=== PATIENT | female | born 1995 | race Caucasian/White ===

== ENCOUNTER 2018-03-15 05:48 | Inpatient (IN) ==
[2018-03-15] MEDS ORDERED: Citric Acid/Sodium Citrate Liq 30 ML UDC PO SCH (06:15)
[2018-03-15 06:34] LABS: Baso # (Auto) 0.1 th/mm3 (0.0-0.2); Baso % (Auto) 0.5 % (0.0-2.0); Eos # (Auto) 0.1 th/mm3 (0.0-0.4); Hematocrit 36.3 % (35.0-46.0); Hemoglobin 11.8 gm/dL (11.6-15.3); Lymph # (Auto) 2.5 th/mm3 (1.0-4.8); Lymph % (Auto) 21.7 % (9.0-44.0); Mean Corpuscular HGB Conc 32.4 % (32.0-36.0); Mean Corpuscular Hemoglobin 26.6 pg (27.0-34.0); Mean Corpuscular Volume 82.2 fL (80.0-100.0); Mean Platelet Volume 10.3 fL (7.0-11.0); Mono # (Auto) 0.7 th/mm3 (0.0-0.9); Mono % (Auto) 6.3 % (0.0-8.0); Neut # (Auto) 8.3 th/mm3 (1.8-7.7); Neut % (Auto) 70.5 % (16.0-70.0); Platelet Count 192 th/mm3 (150-450); Red Blood Count 4.42 mil/mm3 (4.00-5.30); White Blood Count 11.7 th/mm3 (4.0-11.0)
[2018-03-15] MEDS ORDERED: Morphine Sulfate PF Inj 5 MG/10 ML Ampul ONE (06:50)
--- NOTE | 2018-03-15 07:24 | P.HPOB ---
History of Present Illness Service: obstetrics Primary Care Physician: UNKNOWN Chief Complaint: for elective repeat CS History of Present Illness: 23 yo WF who is 39 weeks and with previous section. She desires CS and signed consents Weeks Gestation:: 39 Para: 1 : 2 - Inpatient Certification I certify that the inpatient services were ordered in accordance with Medicare regulations governing the order. This includes certification that hospital inpatient services are reasonable and necessary and in the case of services not specified as inpatient-only under 42 CFR 419.22(n), that they are appropriately provided as inpatient services in accordance to with the 2-midnight benchmark under 43 CFR 412.3(e) Estimated Total Length of Stay (Days): 2 Plans for Post Hospital Care: Home Review of Systems negative except All other systems reviewed negative except as stated in HPI PMFSH - History History Provided By: Patient - Medical / Surgical Hx Neg / Unobtainable Medical Problems Denied: Yes - Medical History Medical History: Medical History (Last Reviewed 03/15/18 @ 07:21 by Vlad Feliciano MD) delivery delivered - Tobacco History Second Hand Smoke Exposure: No Tobacco Use In Past 30 Days: No Smoking Status: Never smoker - Alcohol History How Often Do You Have a Drink Containing Alcohol: Never - Substance Use History Substance History: No History of Abuse - Immunization History Hx Influenza Vaccine This Season: No Medications and Allergies Active Medications: Active Medications Citric Acid/Sodium Citrate (Sodium Citrate/Citric Acid Liq) 30 ml PO HOROLOGIST [facility] Stop: 03/19/18 06:14 Cefazolin Sodium 1,000 mg/ (Sodium Chloride) 100 mls @ 100 mls/hr IV.SIG HOROLOGIST [facility] Stop: 03/19/18 06:59 Lactated Ringer's (Lr 1000 Ml Inj) 1,000 mls @ 150 mls/hr IV.CONT .Q6H40M [facility] Allergies Allergy/AdvReac Type Severity Reaction Status Date / Time No Known Allergies Allergy none Uncoded 03/15/18 06:06 Home Medications Medication Instructions Recorded Confirmed Type prenat.vits,luis daniel,[id number] 1 tab PO DAILY 03/15/18 03/15/18 History [ Vitamin] Exam Vital signs: Vital Signs 03/15/18 06:15 03/15/18 06:36 Temperature 98.2 F Pulse Rate 84 80 Respiratory Rate 18 18 Blood Pressure 126/91 H 132/87 Intake & Output 03/14/18 03/15/18 03/15/18 18:59 06:59 18:59 Weight 68.039 kg Other: Weight On Admission 68.039 kg - Constitutional no acute distress - Routine HEENT Exam Head: Present: normocephalic - Routine Neck Exam Present: supple - Routine Respiratory Exam Present: CTA bilaterally - Routine Cardiovascular Exam Present: RRR - Routine Abdominal Exam Present: soft, normoactive bowel sounds - Routine Extremities Exam Present: full ROM - Routine Skin Exam Present: intact - Routine Neurological Exam Present: alert, oriented X3 (cervix closed) Results - Labs CBC & Chem 7: 03/15/18 06:20 Labs: Laboratory Results - last 24 hr 03/15/18 03/15/18 06:20 06:20 WBC 11.7 H RBC 4.42 Hgb 11.8 Hct 36.3 MCV 82.2 MCH 26.6 L MCHC 32.4 RDW 15.0 Plt Count 192 MPV 10.3 Neut % (Auto) 70.5 H Lymph % (Auto) 21.7 [place] % (Auto) 6.3 Eos % (Auto) 1.0 Baso % (Auto) 0.5 Neut # (Auto) 8.3 H Lymph # (Auto) 2.5 [place] # (Auto) 0.7 Eos # (Auto) 0.1 Baso # (Auto) 0.1 WBC Differential . Differential Comment Auto diff final Blood Type O Positive Blood Type Recheck Not needed Antibody Screen Negative Caprini VTE Risk Assessment Caprini VTE Risk Assessment: No/Low Risk (score <= 1) Caprini Risk Assessment Model: Point Value = 1 Point Value = 2 Point Value = 3 Point Value = 5 Age 41-60 Minor surgery BMI > 25 kg/m2 Swollen legs Varicose veins or History of unexplained or recurrent spontaneous Oral contraceptives or hormone replacement Sepsis (< 1 month) Serious lung disease, including pneumonia (< 1 month) Abnormal pulmonary function Acute myocardial infarction Congestive heart failure (< 1 month) History of inflammatory bowel disease Medical patient at bed rest Age 61-74 Arthroscopic surgery Major open surgery (> 45 min) Laparoscopic surgery (> 45 min) Malignancy Confined to bed (> 72 hours) Immobilizing plaster cast Central venous access Age >= 75 History of VTE Family history of VTE Factor V Leiden Prothrombin [id number] Lupus anticoagulant Anticardiolipin antibodies Elevated serum homocysteine Heparin-induced thrombocytopenia Other congenital or acquired thrombophilia Stroke (< 1 month) Elective arthroplasty Hip, pelvis, or leg fracture Acute spinal cord injury (< 1 month) Prophylaxis Regimen: Total Risk Factor Score Risk Level Prophylaxis Regimen 0-1 Low Early ambulation 2 Moderate Order ONE of the following: *Sequential Compression Device (SCD) *Heparin 5000 units SQ BID 3-4 Higher Order ONE of the following medications: *Heparin 5000 units SQ TID *Enoxaparin/Lovenox 40 mg SQ daily (WT < 150 kg, CrCl > 30 mL/min) *Enoxaparin/Lovenox 30 mg SQ daily (WT < 150 kg, CrCl > 10-29 mL/min) *Enoxaparin/Lovenox 30 mg SQ BID (WT < 150 kg, CrCl > 30 mL/min) AND/OR *Sequential Compression Device (SCD) 5 or more Highest Order ONE of the following medications: *Heparin 5000 units SQ TID (Preferred with Epidurals) *Enoxaparin/Lovenox 40 mg SQ daily (WT < 150 kg, CrCl > 30 mL/min) *Enoxaparin/Lovenox 30 mg SQ daily (WT < 150 kg, CrCl > 10-29 mL/min) *Enoxaparin/Lovenox 30 mg SQ BID (WT < 150 kg, CrCl > 30 mL/min) AND *Sequential Compression Device (SCD) Assessment and Plan - Diagnosis (1) 39 weeks gestation of Code(s): Z3A.39 - 39 weeks gestation of Status: Acute (2) delivery delivered Code(s): O82 - Encounter for delivery without indication Status: Acute - Plan elective CS repeat
[2018-03-15 07:57] LABS: Amphetamine Screen,Urine Neg (Neg); Barbiturate Screen,Urine Neg (Neg); Cannabinoid Screen,Urine Neg (Neg); Cocaine Screen,Urine Neg (Neg)
[2018-03-15 07:58] LABS: Bacteria,Urine Occasional /hpf; Bilirubin,Urine Negative (Negative); Clarity,Urine Hazy (Clear); Color,Urine Yellow (Yellw/Straw); Glucose,Urine (UA) Negative (Negative); Leukocyte Esterase,Urine Large (Negative); Mucus,Urine Few /lpf (Occasional); Nitrite,Urine Negative (Negative); Opiate Screen,Urine Neg (Neg); Squamous Epithelial Cell,Urine 15 /hpf (0-5)
[2018-03-15] MEDS ORDERED: Oxytocin 30 Units/500ml Premix 30 UNITS/500 ML BAG IV.SIG ONE ×2 (08:15→19:04)
--- NOTE | 2018-03-15 08:19 | P.OBDELI ---
Procedure Note - Pre Op Diagnosis (1) 39 weeks gestation of (2) delivery delivered - Post Op Diagnosis (1) 39 weeks gestation of (2) delivery delivered Performed by: Vlad Feliciano MD Procedure: Repeat Low Transverse Section Indication for Delivery: Desired elective repeat Informed Consent Obtained: For anesthesia, For procedure Confirmed Correct: Patient, Procedure, Site, Time-out taken Anesthesia: Spinal Medication Prior to Procedure: As documented in eMAR Monitoring During Procedure: Blood pressure monitoring, night monitor Urinary Catheter: Inserted using sterile technique Sterile Preparation: Duraprep Position: Supine with wedge to left side - Operative Features Skin Incision: Pfannenstiel Uterine Incision: Low transverse w/knife / blunt ext Membranes Ruptured: Artificially Presentation: Occiput anterior Status of Infant: Viable Placenta Delivered: Intact Medications: Antibiotics Procedure Tolerated: Well Maternal Condition: Stable Baby Condition: Stable - : Female, Single
[2018-03-15] MEDS ORDERED: Oxytocin 30 Units/500ml Premix 30 UNITS/500 ML BAG ONE (08:59)
--- NOTE | 2018-03-15 09:09 | MP ---
cc: Vlad Feliciano MD DATE OF OPERATION: 03/15/2018 PREOPERATIVE DIAGNOSIS: Desires elective repeat section at 39 weeks. POSTOPERATIVE DIAGNOSIS: Desires elective repeat section at 39 weeks. PROCEDURE PERFORMED: Repeat low transverse section. SURGEON: Vlad Feliciano MD ESTIMATED BLOOD LOSS: 300 mL ANESTHESIA: Spinal, Bryanna [place] COMPLICATIONS: None. FINDINGS: Live female infant. PROCEDURE IN DETAIL: After informed consent, the patient was taken to the operating room where she was placed under spinal anesthesia, placed in supine position with left lateral tilt. Perineum and vagina were prepped and draped in normal sterile fashion. After adequate anesthesia was assured, timeout was taken. Antibiotics was initiated. A Pfannenstiel skin incision was carried sharply through the skin to the fascia. The fascia was nicked in the midline. The incision was extended laterally using Al scissors. Rectus muscle was dissected off fascia wit sharp dissection secondary to scar tissue. Rectus muscle in the midline. The incision had to be extended upward and downward when the peritoneum was entered, secondary to scar tissue. Once we placed a bladder blade in the abdomen, a bladder flap was created by dissecting the bladder off the lower uterine segment and the low transverse uterine incision was then made, carried sharply to the uterine cavity. Clear fluid was noted. The incision was extended laterally using blunt traction. A hand was placed into the uterus. The infant's head was guided through the incision. Using fundal pressure, the infant's head readily delivered, nose and mouth suctioned well. Cord was clamped and cut and the handed to Pediatrics in attendance. Cord blood was collected. Placenta was delivered manually. The uterus exteriorized, wiped free from all remaining products of conception. Uterine incision was then closed with a running lock stitch of chromic suture. Good hemostasis was achieved. Uterus was placed back into the abdomen and noted to be hemostatic. The peritoneum was closed with chromic suture. The fascia was then closed with Vicryl suture. The skin was closed with subcuticular stitch. Each layer was noted to be hemostatic prior to closure. The patient tolerated the procedure well. Lap and instrument counts were reported as correct. Infant went to the recovery room and the mother went to the recovery room to follow. MD [place] Naav/RICHARD , 08:22 AM , 09:08 AM
[2018-03-15] MEDS ORDERED: Phenylephrine/NS 1000 MCG/10ML Syringe IV.PUSH ONE (12:00)
[2018-03-15] MEDS ORDERED: Oxytocin 30 Units/500ml Premix 30 UNITS/500 ML BAG IV.SIG PRN (13:15)
[2018-03-15] MEDS ORDERED: Simethicone 80 MG Chew Tablet PO PRN (19:04)
[2018-03-15] MEDS: Ibuprofen 600 MG Tablet PO PRN (20:35)
[2018-03-16] MEDS ORDERED: Oxytocin 30 Units/500ml Premix 30 UNITS/500 ML BAG IV.SIG PRN (00:04)
[2018-03-16] MEDS: Ibuprofen 600 MG Tablet PO PRN ×4 (02:51→22:36)
[2018-03-16 06:22] LABS: Baso % (Auto) 0.4 % (0.0-2.0); Eos % (Auto) 0.3 % (0.0-4.0); Hematocrit 29.8 % (35.0-46.0); Hemoglobin 9.7 gm/dL (11.6-15.3); Mean Corpuscular HGB Conc 32.6 % (32.0-36.0); Mean Corpuscular Hemoglobin 26.3 pg (27.0-34.0); Mean Corpuscular Volume 80.8 fL (80.0-100.0); Mono # (Auto) 0.6 th/mm3 (0.0-0.9); Mono % (Auto) 5.3 % (0.0-8.0); Neut # (Auto) 9.6 th/mm3 (1.8-7.7); Platelet Count 129 th/mm3 (150-450); Red Blood Count 3.68 mil/mm3 (4.00-5.30); Red Cell Distribution Width 15.3 % (11.6-17.2); White Blood Count 12.3 th/mm3 (4.0-11.0)
--- NOTE | 2018-03-16 09:39 | P.PNOB ---
Subjective Post day: 1 Interval history: doing well Objective Vital Signs/I&O: Vital Signs 03/15/18 10:15 03/15/18 13:30 03/15/18 13:33 Temperature 97.4 F L 97.9 F Pulse Rate 63 85 Respiratory Rate 16 20 Blood Pressure 137/94 H 118/56 L 03/15/18 15:05 03/15/18 20:00 03/15/18 22:00 Temperature 98.4 F 97.6 F Pulse Rate 74 64 Respiratory Rate 18 17 16 Blood Pressure 142/69 H 121/67 03/16/18 00:00 03/16/18 02:51 03/16/18 04:00 Temperature 98.0 F 97.7 F Pulse Rate 61 64 Respiratory Rate 17 18 17 Blood Pressure 112/73 103/69 03/16/18 06:30 03/16/18 08:00 Temperature 98.0 F Pulse Rate 69 Respiratory Rate 17 18 Blood Pressure 113/77 Result Diagrams: 03/16/18 05:53 Objective Remarks: GENERAL: Well-nourished, well-developed patient. ABDOMEN/GI: Abdomen soft, non-tender. Fundus: Firm, non-tender at umbilicus. GENITOURINARY: Light to moderate bleeding. EXTREMITIES: No cyanosis or edema, non-tender, without signs of DVT. Medications and IVs: Active Medications Citric Acid/Sodium Citrate (Sodium Citrate/Citric Acid Liq) 30 ml PO BISQUE KILN DRAWER [facility] Stop: 03/19/18 06:14 Diphtheria/Pertussis/Tetanus Vacc (Boostrix Vaccine Inj) 0.5 ml IM .ONCE ONE Stop: 03/16/18 16:01 Cefazolin Sodium 1,000 mg/ (Sodium Chloride) 100 mls @ 100 mls/hr IV.SIG BISQUE KILN DRAWER [facility] Stop: 03/19/18 06:59 Oxytocin (Pitocin 30 Units/Ns 500 Ml Premix) 30 units in 500 mls @ 100 mls/hr IV.SIG UNSCH X1 PRN PRN Reason: Heavy bleeding Stop: 03/16/18 13:14 Lactated Ringer's (Lr 1000 Ml Inj) 1,000 mls @ 100 mls/hr IV.CONT .Q10H [facility] Stop: 03/16/18 20:03 Oxytocin (Pitocin 30 Units/Ns 500 Ml Premix) 30 units in 500 mls @ 100 mls/hr IV.SIG PRN PRN PRN Reason: Heavy bleeding Stop: 03/17/18 00:03 Measles/Mumps/Rubella Vaccine Live (M-M-R Ii Vaccine Inj) 0.5 ml SQ .ONCE ONE Stop: 03/16/18 16:01 Ondansetron HCl (Zofran Odt) 4 mg PO Q6H PRN PRN Reason: NAUSEA OR VOMITING Oxycodone/Acetaminophen (Percocet 5/325 Mg) 1 tab PO Q4H PRN PRN Reason: PAIN SCALE 3 TO 5 Oxycodone/Acetaminophen (Percocet 5/325 Mg) 2 tab PO Q4H PRN PRN Reason: PAIN SCALE 6 TO 10 Oxycodone/Acetaminophen (Percocet 5/325 Mg) 2 tab PO Q4H PRN PRN Reason: PAIN SCALE 6 TO 10 Oxycodone/Acetaminophen (Percocet 5/325 Mg) 1 tab PO Q4H PRN PRN Reason: PAIN SCALE 3 TO 5 Senna/Docusate Sodium (Janelle-Colace) 2 tab PO Q12H PRN PRN Reason: CONSTIPATION Simethicone (Mylicon Chew) 80 mg PO QID PRN PRN Reason: FLATULENCE Sodium Chloride (Ns Flush) 2 ml IV.FLUSH UNSCH PRN PRN Reason: FLUSH AFTER USING IV ACCESS Sodium Chloride (Ns Flush) 2 ml IV.FLUSH BID MONIQUE Sodium Chloride (Ns Flush) 2 ml IV.FLUSH BID MONIQUE Sodium Chloride (Ns Flush) 2 ml IV.FLUSH PRN PRN PRN Reason: FLUSH AFTER USING IV ACCESS Assessment and Plan - Diagnosis (1) 39 weeks gestation of Code(s): Z3A.39 - 39 weeks gestation of Status: Acute (2) delivery delivered Code(s): O82 - Encounter for delivery without indication Status: Acute - Plan elective CS repeat
[2018-03-16] MEDS: Senna/Docusate Sodium 8.6/50 MG Tablet PO PRN ×2 (10:36→22:35)
[2018-03-16] MEDS ORDERED: Measles/Mumps/Rubella Vaccine Inj 0.5 ML Vial SQ ONE (16:00)
[2018-03-16] MEDS ORDERED: Diphtheria/Tetanus/Pertussis Vaccine Inj 0.5 ML Syringe IM ONE (16:00)
[2018-03-17] MEDS: Ibuprofen 600 MG Tablet PO PRN ×4 (04:42→23:02)
[2018-03-17] MEDS: Senna/Docusate Sodium 8.6/50 MG Tablet PO PRN ×2 (10:36→23:01)
--- NOTE | 2018-03-17 11:21 | P.DS ---
Date of admission: 03/15/18 05:48 Primary care physician: UNKNOWN Attending physician on discharge: Vlad Feliciano Anticipated date of discharge: 03/17/18 Brief History from admission: 23 yo WF who is 39 weeks and with previous section. She desires CS and signed consents DS: Diagnosis - Discharge Diagnosis (1) 39 weeks gestation of Status: Acute (2) delivery delivered Status: Acute DS: Medications - Discharge Medications Prescriptions: oxycodone-acetaminophen 2 tab PO Q4H PRN 3 Days #24 tab PRN Reason: Pain Scale 6 To 10 DS: Summary Hospital Course: patient had CS and DC home ppd #2 , doing well - Time Spent with Patient Total time spent providing and/or coordinating discharge services: Exam Vital signs: Vital Signs 03/16/18 20:00 03/17/18 00:00 03/17/18 08:00 Temperature 98.3 F 98.7 F 98.3 F Pulse Rate 80 87 82 Respiratory Rate 18 18 16 Blood Pressure 112/74 145/88 H 121/72 - Constitutional no acute distress - Routine HEENT Exam Head: Present: normocephalic - Routine Respiratory Exam Present: CTA bilaterally - Routine Cardiovascular Exam Present: RRR - Routine Abdominal Exam Present: soft, normoactive bowel sounds - Routine Extremities Exam Present: full ROM, pulses intact - Routine Skin Exam Present: intact - Routine Neurological Exam Present: alert, oriented X3 Results Procedures completed during hospitalization: section repeat Discharge Plan - Discharge Disposition Patient Disposition: 01 Discharge Home - Discharge Condition Condition: Good - Discharge Order Discharge Orders: Discharge Order (Routine); Ordered 03/17/18 Ordered By: Vlad Feliciano - Physicians Team Primary Care Provider: UNKNOWN, Attending Provider: Vlad Feliciano - Rxs /Orders / Referrals /Forms Prescriptions: New oxycodone-acetaminophen 5-325 mg Tablet 2 tab PO Q4H PRN (Reason: Pain Scale 6 To 10) 3 Days Qty: 24 RF: 0 No Action prenat.vits,luis daniel,[id number] [ Vitamin] Tablet 1 tab PO DAILY Referrals: UNKNOWN, [Primary Care Provider] - See Instructions - Post Discharge Care Plan Care Plan Goals: Your Health Problems: Goals to Promote Your Health: * To prevent worsening of your condition * To maintain your health at the optimal level Directions to Meet Your Goals: * Take your medications as prescribed * Follow your dietary instruction * Follow activity as directed * Keep your appointments as scheduled * Take your immunizations and boosters as scheduled * If your symptoms worsen call your PCP * If no PCP go to Urgent Care or Emergency Room Smoking is dangerous to your health. Avoid second hand smoke. You may reach the 24-hour crisis hotline for domestic abuse at .
[2018-03-18] MEDS: Ibuprofen 600 MG Tablet PO PRN ×2 (06:01→11:35)
--- NOTE | 2018-03-18 08:46 | P.PNOB ---
Subjective Post day: 3 Interval history: doing well Objective Vital Signs/I&O: Vital Signs 03/17/18 16:20 03/17/18 19:34 Temperature 98.8 F 98.1 F Pulse Rate 94 H 82 Respiratory Rate 16 18 Blood Pressure 126/81 114/69 Result Diagrams: 03/16/18 05:53 Objective Remarks: GENERAL: Well-nourished, well-developed patient. CARDIOVASCULAR: Regular rate and rhythm without murmurs, gallops, or rubs. RESPIRATORY: Breath sounds equal bilaterally. No accessory muscle use. ABDOMEN/GI: Abdomen soft, non-tender. Fundus: Firm, non-tender at umbilicus. GENITOURINARY: Light to moderate bleeding. EXTREMITIES: No cyanosis or edema, non-tender, without signs of DVT. Medications and IVs: Active Medications Citric Acid/Sodium Citrate (Sodium Citrate/Citric Acid Liq) 30 ml PO SITE SAFETY REPRESENTATIVE [facility] Stop: 03/19/18 06:14 Cefazolin Sodium 1,000 mg/ (Sodium Chloride) 100 mls @ 100 mls/hr IV.SIG SITE SAFETY REPRESENTATIVE [facility] Stop: 03/19/18 06:59 Ondansetron HCl (Zofran Odt) 4 mg PO Q6H PRN PRN Reason: NAUSEA OR VOMITING Last Admin: 03/17/18 13:08 Dose: 4 mg Oxycodone/Acetaminophen (Percocet 5/325 Mg) 1 tab PO Q4H PRN PRN Reason: PAIN SCALE 3 TO 5 Last Admin: 03/18/18 06:02 Dose: 1 tab Oxycodone/Acetaminophen (Percocet 5/325 Mg) 2 tab PO Q4H PRN PRN Reason: PAIN SCALE 6 TO 10 Last Admin: 03/17/18 10:36 Dose: 2 tab Oxycodone/Acetaminophen (Percocet 5/325 Mg) 2 tab PO Q4H PRN PRN Reason: PAIN SCALE 6 TO 10 Last Admin: 03/17/18 04:42 Dose: 2 tab Oxycodone/Acetaminophen (Percocet 5/325 Mg) 1 tab PO Q4H PRN PRN Reason: PAIN SCALE 3 TO 5 Senna/Docusate Sodium (Janelle-Colace) 2 tab PO Q12H PRN PRN Reason: CONSTIPATION Last Admin: 03/17/18 23:01 Dose: 2 tab Simethicone (Mylicon Chew) 80 mg PO QID PRN PRN Reason: FLATULENCE Sodium Chloride (Ns Flush) 2 ml IV.FLUSH UNSCH PRN PRN Reason: FLUSH AFTER USING IV ACCESS Sodium Chloride (Ns Flush) 2 ml IV.FLUSH BID MONIQUE Sodium Chloride (Ns Flush) 2 ml IV.FLUSH BID MONIQUE Sodium Chloride (Ns Flush) 2 ml IV.FLUSH PRN PRN PRN Reason: FLUSH AFTER USING IV ACCESS Assessment and Plan - Diagnosis (1) 39 weeks gestation of Code(s): Z3A.39 - 39 weeks gestation of Status: Acute (2) delivery delivered Code(s): O82 - Encounter for delivery without indication Status: Acute - Plan elective CS repeat
[2018-03-18] MEDS: Senna/Docusate Sodium 8.6/50 MG Tablet PO PRN (11:35)
== END 2018-03-18 11:49 | disposition home or self-care (01) ==
LOC: H2E 05:48 → H1EA 10:08
PROVIDERS: ADMIT Obstetrics & Gynecology; ATTEND Obstetrics & Gynecology